=== PATIENT | male | born 1945 | race Caucasian/White ===

== ENCOUNTER → 2018-08-28 | Outpatient (CLI) | payer MEDICARE ==
--- NOTE | 2018-08-28 14:35 | Diagnostic Imaging Report ---
Exam: Bilateral knee series; 3 views each History: Pain Comparison: None available Findings: There is symmetric tricompartment degenerative disease which is severe on both the right and left side. There is a small left joint effusion. On the right side extensive vascular calcification is noted in the popliteal artery with several extra osseous calcific densities likely loose bodies that have calcified. 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 Signed by: Dr. Anand Kunz DO on 08/28/2018 2:31 PM
== END ==
LOC: RAD 12:24
DX: M17.0 Bilateral primary osteoarthritis of knee (principal)

== ENCOUNTER 2019-10-19 04:39 | Inpatient (IN) | payer MEDICARE, OTHER ==
[~2019-10-19] VITALS: Ht 170.2 cm; Wt 123.4 kg
[2019-10-19 04:54] LABS: BASOPHILS % 0.2 % (0.0-1.0); EOSINOPHILS % 0.2 % (0.0-6.0); HEMATOCRIT 49.2 % (38.2-49.6); HEMOGLOBIN 15.6 g/dL (14.0-18.0); LYMPHOCYTES # (AUTO) 0.6 (1.0-3.2); LYMPHOCYTES % 4.5 % (18.0-39.1); MEAN CORPUSCULAR HEMOGLOBIN 30.1 pg (28-32); MEAN CORPUSCULAR HGB CONC 31.7 g/dL (31-35); MEAN CORPUSCULAR VOLUME 94.8 fL (81-99); MONOCYTES # (AUTO) 0.5 (0.2-0.8); MONOCYTES % 4.3 % (4.4-11.3); NEUTROPHILS % 90.4 % (38.7-80.0); PLATELET COUNT 230 x10e3/uL (140-360); RED BLOOD COUNT 5.19 x10e6/uL (4.3-5.7); RED CELL DISTRIBUTION WIDTH 13.1 % (11.7-14.4)
--- NOTE | 2019-10-19 05:04 | Emergency Department Note ---
History of Present Illnes History of Present Illness Chief Complaint: Abdominal Complaints History of Present Illness This is a 74 year old male PRESENTS TO THE ER C/O EPIGASTRIC ABD PAIN RADIATING TO BILATERAL SHOULDERS ONSET LAST NIGHT AROUND 1999 AFTER EATING BUISCITS AND GRAVY; PT STATES HE DEVELOPED CP WHEN SYMPTOMS OCCURED THEN ROLLED OVER AND SYMPTOMS RESOLVED; DENIES FEVER/CHILLS, N/V/D; DENIES CP OR SOB; NAD NOTED AT THIS TIME. STATES HE HAS BEEN HAVING THIS PAIN OFF AN ON FOR PAST 3 WEEKS AND OCCURS AFTER HE EATS. PT IS ON COUMADIN SECONDARY TO H/O PE . 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 Any updates have been documented here. Past Medical History Recent Fever: No Clinical Suspicion of Infectio: No New/Unexplained Change in Ment: No Past Medical History: Hypertension, Diabetes, GERD, DVT/PE Other Medical History: RENAL FAILURE GAISBOK'S SYNDROME FACTOR V-THROMBOPHILIA Social History Smoking Cessation: Never Smoker Alcohol Use: None Any Illegal Drug Use: No Physically hurt or threatened: No Family History Family history of heart diseas: No Other family history HTN,DM Review of Systems Review of Systems Constitutional: Reports no symptoms EENTM: Reports no symptoms Cardiovascular: Reports no symptoms Respiratory: Reports no symptoms Gastrointestinal: Reports as per HPI Genitourinary: Reports no symptoms Musculoskeletal: Reports no symptoms Integumentary: Reports no symptoms Neurological: Reports no symptoms Psychological: Reports no symptoms Endocrine: Reports no symptoms Hematological/Lymphatic: Reports no symptoms Physical Exam Related Data Allergies: Coded Allergies: Iodine and Iodide Containing Produc (Verified Allergy, Intermediate, 10/19/19) Tetanus Vaccines and Toxoid (Verified Allergy, Unknown, 05/11/07) penicillin G (Verified Allergy, Unknown, 05/11/07) Triage Vital Signs Vital Signs Date Time Temp Pulse Resp B/P (MAP) Pulse Ox O2 Delivery O2 Flow Rate FiO2 10/19/19 04:39 99.6 115 20 134/73 99 Room Air Vital signs reviewed: Yes Physical Exam CONSTITUTIONAL Constitutional: Present well-developed, Present well-nourished HENT HENT: Present normocephalic, Present atraumatic, Present oropharynx clear/moist, Present nose normal HENT L/R: Present left ext ear normal, Present right ext ear normal EYES Eyes: Reports PERRL, Reports conjunctivae normal NECK Neck: Present ROM normal PULMONARY Pulmonary: Present effort normal, Present breath sounds normal CARDIOVASCULAR Cardiovascular: Present regular rhythm, Present heart sounds normal, Present capillary refill normal, Present tachycardia (110,PT STATES HIS HEART RATE IS ALWAYS AT LEAST 100) GASTROINTESTINAL Abdominal: Present soft, Present nontender, Present bowel sounds normal GENITOURINARY Genitourinary: Present exam deferred SKIN Skin: Present warm, Present dry MUSCULOSKELETAL Musculoskeletal: Present ROM normal NEUROLOGICAL Neurological: Present alert, Present oriented x 3, Present no gross motor or sensory deficits PSYCHOLOGICAL Psychological: Present mood/affect normal, Present judgement normal Results Laboratory Result Diagram: 10/19/19 0445 Laboratory Laboratory Tests Test 10/19/19 04:45 White Blood Count 12.14 x10e3/uL (4.8-10.8) Red Blood Count 5.19 x10e6/uL (4.3-5.7) Hemoglobin 15.6 g/dL (14.0-18.0) Hematocrit 49.2 % (38.2-49.6) Mean Corpuscular Volume 94.8 fL (81-99) Mean Corpuscular Hemoglobin 30.1 pg (28-32) Mean Corpuscular Hemoglobin Concent 31.7 g/dL (31-35) Red Cell Distribution Width 13.1 % (11.7-14.4) Platelet Count 230 x10e3/uL (140-360) Neutrophils (%) (Auto) 90.4 % (38.7-80.0) Lymphocytes (%) (Auto) 4.5 % (18.0-39.1) Monocytes (%) (Auto) 4.3 % (4.4-11.3) Eosinophils (%) (Auto) 0.2 % (0.0-6.0) Basophils (%) (Auto) 0.2 % (0.0-1.0) Neutrophils # (Auto) 11.0 (2.1-6.9) Lymphocytes # (Auto) 0.6 (1.0-3.2) Monocytes # (Auto) 0.5 (0.2-0.8) Eosinophils # (Auto) 0.0 (0.0-0.4) Basophils # (Auto) 0.0 (0.0-0.1) Absolute Immature Granulocyte (auto 0.05 x10e3/uL (0-0.1) Sodium Level 140 mmol/L (136-145) Potassium Level 4.7 mmol/L (3.5-5.1) Chloride Level 104 mmol/L (98-107) Carbon Dioxide Level 22 mmol/L (22-29) Anion Gap 18.7 mmol/L (8-16) Blood Urea Nitrogen 27 mg/dL (7-26) Creatinine 1.58 mg/dL (0.72-1.25) Estimat Glomerular Filtration Rate 43 ML/MIN (60-) BUN/Creatinine Ratio 17 (6-25) Glucose Level 138 mg/dL (74-118) Calcium Level 10.0 mg/dL (8.4-10.2) Total Bilirubin 3.1 mg/dL (0.2-1.2) Aspartate Amino Transf (AST/SGOT) 373 IU/L (5-34) Alanine Aminotransferase (ALT/SGPT) 342 IU/L (0-55) Alkaline Phosphatase 185 IU/L (40-150) Creatine Kinase 132 IU/L (30-200) Creatine Kinase MB 2.10 ng/mL (0-5.0) Troponin I 0.008 ng/mL (0-0.300) Total Protein 8.7 g/dL (6.5-8.1) Albumin 3.9 g/dL (3.5-5.0) Globulin 4.8 g/dL (2.3-3.5) Albumin/Globulin Ratio 0.8 (0.8-2.0) Amylase Level 194 U/L (25-125) Lipase 166 U/L (8-78) Laboratory Tests Test 10/19/19 04:45 White Blood Count 12.14 x10e3/uL (4.8-10.8) Red Blood Count 5.19 x10e6/uL (4.3-5.7) Hemoglobin 15.6 g/dL (14.0-18.0) Hematocrit 49.2 % (38.2-49.6) Mean Corpuscular Volume 94.8 fL (81-99) Mean Corpuscular Hemoglobin 30.1 pg (28-32) Mean Corpuscular Hemoglobin Concent 31.7 g/dL (31-35) Red Cell Distribution Width 13.1 % (11.7-14.4) Platelet Count 230 x10e3/uL (140-360) Neutrophils (%) (Auto) 90.4 % (38.7-80.0) Lymphocytes (%) (Auto) 4.5 % (18.0-39.1) Monocytes (%) (Auto) 4.3 % (4.4-11.3) Eosinophils (%) (Auto) 0.2 % (0.0-6.0) Basophils (%) (Auto) 0.2 % (0.0-1.0) Neutrophils # (Auto) 11.0 (2.1-6.9) Lymphocytes # (Auto) 0.6 (1.0-3.2) Monocytes # (Auto) 0.5 (0.2-0.8) Eosinophils # (Auto) 0.0 (0.0-0.4) Basophils # (Auto) 0.0 (0.0-0.1) Absolute Immature Granulocyte (auto 0.05 x10e3/uL (0-0.1) Lab results reviewed: Yes Imaging Imaging results reviewed: Yes Procedures 12 Lead ECG Interpretation ECG Interpretation : ECG: ECG 1 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: Interpreted by ED physician Date: Oct 19, 2019 Time: 04:42 Rhythm: sinus tachycardia Rate: tachycardia BPM: 112 QRS axis: normal Conduction: 1st degree ST segments normal: Yes T waves normal: Yes Other findings: no other findings Clinical Impression: non-specific ECG Assessment & Plan Medical Decision Making MDM PT WITH INTERMITTENT UPPER ABD PAIN RADIATING TO CHEST AND UPPER BACK FOR 3 WEEKS ASSOCIATED WITH EATING, PT IS PAIN FREE AT THIS TIME CBC, CMP, AMYLASE, LIPASE, EKG, CARDIAC ENZYMES, GALLBLADDER ULTRA SOUND ORDERED TO EVAL FOR MYOCARDIAL INFARCTION, ELEVATED LFT'S, PANCREATITIS, GALLSTONES PT WITH ELEVATED LFT'S AND WBC OF 12K LACTIC ACID ORDERED BLOOD CULTURES ORDERED ROCEPHIN 1 GRAM IV ORDERED FLAGYL 500 MG IV ORDERED. 1 LITER NS IV BOLUS ORDERED I SPOKE WITH DR Romana VICKERS, DR Giuliana VICKERS, AND DR Gary DUQUE, ADMIT IN PATIENT, ORD ER MRCP Assessment & Plan Final Impression: (1) Abdominal pain (2) Elevated LFTs (3) Pancreatitis (4) Cholecystitis Depart Disposition: ADMITTED Last Vital Signs Date Time Temp Pulse Resp B/P (MAP) Pulse Ox O2 Delivery O2 Flow Rate FiO2 10/19/19 04:39 99.6 115 20 134/73 99 Room Air ABHIJEET RUTH MD Oct 19, 2019 05:04
[2019-10-19 05:11] LABS: ALBUMIN 3.9 g/dL (3.5-5.0); ALBUMIN/GLOBULIN RATIO 0.8 (0.8-2.0); ANION GAP 18.7 mmol/L (8-16); CREATININE, SERUM 1.58 mg/dL (0.72-1.25); POTASSIUM 4.7 mmol/L (3.5-5.1)
[2019-10-19 05:12] LABS: AMYLASE 194 U/L (25-125); LIPASE 166 U/L (8-78)
[2019-10-19 05:18] LABS: CREATINE KINASE MB 2.1 ng/mL (0-5.0)
[2019-10-19] MEDS ORDERED: SODIUM CHLORIDE 0.9% 1000ML 1,000 ML ONE (05:27)
[2019-10-19 05:28] LABS: INR 1.77; PARTIAL THROMBOPLASTIN TIME 38.5 seconds (23.8-35.5); PROTHROMBIN TIME 21.7 seconds (11.9-14.5)
[2019-10-19] MEDS ORDERED: CEFTRIAXONE SOD 1 GM/NS 50 ML 50 ML IV ONE (05:30)
[2019-10-19] MEDS ORDERED: SODIUM CHLORIDE 0.9% 1000ML 1,000 ML IV ONE (05:30)
[2019-10-19] MEDS ORDERED: METRONIDAZOLE 500MG/NS 100ML 100 ML IV ONE (05:30)
--- OUTSIDE RECORDS SUMMARY | 2019-10-19 05:43 | XMS REPORT | Continuity of Care Document ---
Author Author [facility] Organization [facility] Address [address] [place] [id number] Phone Unavailable Care Team Providers Care Soil Analyst Name Role Phone JAYA VICKERS Attphys Unavailable Problems This patient has no known problems. Allergies, Adverse Reactions, Alerts This patient has no known allergies or adverse reactions. Medications This patient has no known medications. Procedures This patient has no known procedures. Results Test Description Test Time Test Comments Results Result Comments Source KNEE THREE VIEWS BILATERAL 2018-08-28 14:28:00 [facility] [address] [address] Patient Name: NASREEN HERNÁNDEZ MR #: [id number] : 1945 Age/Sex: 73/M Req #: [id number] Adm Physician: Ordered by: JAYA VICKERS MD Report #: [id number] Location: [facility] Room/Bed: Procedure: [id number] DX/KNEE THREE VIEWS BILATERAL Exam Date: 08/28/18 Exam Time: 1250 REPORT STATUS: Signed Exam: Bilateral knee series; 3 views each History: Pain Comparison: None available Findings: There is symmetric tricompartment degenerative disease which is severe on both the right and left side. There is a small left joint effusion. On the right side extensive vascular calcification is noted in the popliteal artery with several extra osseous calcific densities likely loose bodies that have calcified. 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 Signed by: Dr. Zaida Kunz DO on 08/28/2018 2:31 PM Dictated By: ZAIDA KUNZ DO 1431 Transcribed By: ZORAIDA on 08/28/18 1431 COPY TO: JAYA VICKERS MD
[2019-10-19] MEDS ORDERED: MORPHINE SULFATE 2 MG/ML SYR 1ML IV PRN (05:45)
[2019-10-19] MEDS ORDERED: ONDANSETRON HCL INJ 2MG/ML 2ML 2 MG/ML VIAL IV PRN (05:45)
[2019-10-19] MEDS ORDERED: DEXTROSE 50% SYRINGE 50 ML IV PRN (06:00)
--- OUTSIDE RECORDS SUMMARY | 2019-10-19 06:11 | XMS REPORT | Continuity of Care Document ---
Author Author [facility] Organization [facility] Address [address] [place] [id number] Phone Unavailable Care Team Providers Care Production Operator Name Role Phone JAYA VICKERS Attphys Unavailable Problems This patient has no known problems. Allergies, Adverse Reactions, Alerts This patient has no known allergies or adverse reactions. Medications This patient has no known medications. Procedures This patient has no known procedures. Results Test Description Test Time Test Comments Results Result Comments Source KNEE THREE VIEWS BILATERAL 2018-08-28 14:28:00 [facility] [address] [address] Patient Name: NASREEN HERNÁNDEZ MR #: [id number] : 1945 Age/Sex: 73/M Req #: [id number] Adm Physician: Ordered by: JAYA VICKERS MD Report #: [id number] Location: [facility] Room/Bed: Procedure: [id number] DX/KNEE THREE VIEWS BILATERAL Exam Date: 08/28/18 [...]
[2019-10-19] MEDS: METRONIDAZOLE 500MG/NS 100ML 100 ML IV SCH ×4 (06:46→23:52)
[2019-10-19] MEDS: CEFTRIAXONE SOD 1 GM/NS 50 ML 50 ML IV SCH (06:46)
[2019-10-19] MEDS: SODIUM CHLORIDE 0.9% 1000ML 1,000 ML IV SCH ×3 (06:52→20:50)
--- NOTE | 2019-10-19 06:56 | NUR ---
Report to KARY Alejo.
--- NOTE | 2019-10-19 06:57 | Diagnostic Imaging Report ---
EXAM: Right Upper Quadrant Ultrasound INDICATION: ^upper abd pain ^Y COMPARISON: None. TECHNIQUE: Transverse and longitudinal images of the right upper abdomen were obtained. FINDINGS: Liver: Size: 13 cm in the right midclavicular line, normal Appearance: Normal echogenicity, smooth contour Mass: No focal masses Gallbladder: Stones/Sludge: Unremarkable gallstones Wall: 2-3 millimeters Appearance: No pericholecystic fluid or hydrops. Sonographic Gleason's Sign: Negative Bile Ducts: Intrahepatic Ducts: No dilatation Extrahepatic Ducts: Common bile duct measures 0.7 cm, no dilatation Pancreas: Limited evaluation due to overlying bowel gas.. Right Kidney: Size: 11.4 cm Echogenicity: Normal Parenchymal thickness: Normal Collecting system: No hydronephrosis Stones: Hypoechoic foci measuring up to 5 mm may represent intrarenal calculi. Cyst/Mass: None Vessels: Main Portal Vein: Diameter: 0.8 cm, normal. Normal flow direction. Aorta: Visualized portions are normal Inferior Vena Cava: Visualized portions are normal Free Fluid: No ascites or pleural effusion IMPRESSION: 1. Cholelithiasis without evidence of acute cholecystitis. 2. Limited evaluation of pancreas due to overlying bowel gas. Signed by: Dannie Madison MD on 10/19/2019 6:54 AM
[2019-10-19] MEDS: INSULIN REGULAR, HUMAN 100 UNIT/1 ML 3ML VIAL SQ SCH ×4 (07:35→21:00)
--- NOTE | 2019-10-19 07:52 | NUR ---
Patient arrived from ER and report obtained from Anna Parsons LVN. The patient was in the bed and his IV was examined. 2 PIV's on the left arm, in the hand and the AC. IVF connected to a pump. The patient had just taken his BG in the ER where it was 116.
[2019-10-19 08:25] VITALS: BP 110/67
[2019-10-19 08:30] VITALS: BP 110/67
--- NOTE | 2019-10-19 10:00 | NUR ---
Patient is resting comfortably. He is ambulating to the BR with no problems.
--- NOTE | 2019-10-19 11:44 | Diagnostic Imaging Report ---
EXAM: MRI/MRCP of the abdomen without contrast INDICATION: Cholelithiasis. COMPARISON: Right upper quadrant ultrasound 10/19/2019. TECHNIQUE: Multiplanar and multisequence imaging was performed of the abdomen. Discussion: LOWER THORAX: Mild elevation of the right hemidiaphragm with associated basilar atelectasis. HEPATOBILIARY: There is focal fatty infiltration adjacent to the falciform ligament. No focal hepatic lesions. No biliary ductal dilation. No filling defect in the common bile duct to suggest choledocholithiasis. GALLBLADDER: Few T2 hypointense calculi within the gallbladder. The gallbladder is not dilated. No wall thickening. SPLEEN: No splenomegaly. PANCREAS: There is fatty infiltration of the pancreas. ADRENALS: No adrenal nodules KIDNEYS/URETERS: Kidneys enhance symmetrically. No hydronephrosis. 1.7 cm T2 hyperintense focus in the upper pole of the right kidney likely representing cyst. There are additional T2 hyperintense foci in the upper and lower poles of the left kidney also likely representing cysts.. No stones. GI TRACT: No abnormal distention, wall thickening, or evidence of bowel obstruction. LYMPH NODES: No lymphadenopathy. VESSELS: Unremarkable. PERITONEUM / RETROPERITONEUM: No free air or fluid. BONES: Degenerative changes of thoracolumbar spine. SOFT TISSUES: Unremarkable. IMPRESSION: Cholelithiasis. No evidence of acute cholecystitis or choledocholithiasis. Diffuse hepatic steatosis. Signed by: Luis Flores MD on 10/19/2019 11:41 AM
[2019-10-19 12:00] VITALS: BP 110/65
--- NOTE | 2019-10-19 12:30 | NUR ---
Patient resting well, compliant, and has no questions at this time.
--- NOTE | 2019-10-19 15:44 | NUR ---
Patient has been getting Flagyl IV and will continue with med.
[2019-10-19 16:10] VITALS: BP 119/69
--- NOTE | 2019-10-19 17:06 | NUR ---
The patient has a blood disorder that Dr. Bryant is seeing the patient for so Dr. Teddy Nash wants to have him treat the Thromblitic problem of his blood before the patient needs surgery sometime next week.
--- NOTE | 2019-10-19 19:30 | NUR ---
RECEIVED REPORT FROM PREVIOUS NURSE. CALL LIGHT WITHIN REACH. PATIENT IN BED.
[2019-10-19 20:00] VITALS: BP 142/92
[2019-10-20] VITALS (8 sets, daily range): BP systolic 134–153; BP diastolic 71–84
[2019-10-20 04:56] LABS: BASOPHILS % 0.5 % (0.0-1.0); EOSINOPHILS # (AUTO) 0.1 (0.0-0.4); EOSINOPHILS % 1.4 % (0.0-6.0); HEMATOCRIT 40.4 % (38.2-49.6); HEMOGLOBIN 12.9 g/dL (14.0-18.0); LYMPHOCYTES # (AUTO) 0.8 (1.0-3.2); LYMPHOCYTES % 9.3 % (18.0-39.1); MEAN CORPUSCULAR HEMOGLOBIN 30.9 pg (28-32); MEAN CORPUSCULAR HGB CONC 31.9 g/dL (31-35); MEAN CORPUSCULAR VOLUME 96.7 fL (81-99); MONOCYTES # (AUTO) 0.5 (0.2-0.8); MONOCYTES % 6.3 % (4.4-11.3); NEUTROPHILS # (AUTO) 7.1 (2.1-6.9); NEUTROPHILS % 82.2 % (38.7-80.0); PLATELET COUNT 189 x10e3/uL (140-360); RED BLOOD COUNT 4.18 x10e6/uL (4.3-5.7); RED CELL DISTRIBUTION WIDTH 13.4 % (11.7-14.4)
[2019-10-20] MEDS: CEFTRIAXONE SOD 1 GM/NS 50 ML 50 ML IV SCH (05:00)
[2019-10-20 05:09] LABS: INR 1.73; PROTHROMBIN TIME 21.3 seconds (11.9-14.5)
[2019-10-20 05:17] LABS: ALBUMIN 3.1 g/dL (3.5-5.0); ALBUMIN/GLOBULIN RATIO 0.8 (0.8-2.0); ANION GAP 14.1 mmol/L (8-16); CALCIUM 9.3 mg/dL (8.4-10.2); CREATININE, SERUM 1.35 mg/dL (0.72-1.25); POTASSIUM 4.1 mmol/L (3.5-5.1)
[2019-10-20] MEDS: METRONIDAZOLE 500MG/NS 100ML 100 ML IV SCH ×4 (05:45→23:44)
[2019-10-20] MEDS: SODIUM CHLORIDE 0.9% 1000ML 1,000 ML IV SCH ×3 (05:45→21:45)
--- NOTE | 2019-10-20 07:00 | NUR ---
Received bedside shift report from off going night nurse. Patient in stable condition, no s/s of distress noted. IV fluids infusing, site asymptomatic and patent, transparent dressing applied C/D/I. Bed in lowest position and locked. call light within reach.
--- NOTE | 2019-10-20 07:08 | NUR ---
GAVE BEDSIDE SHIFT REPORT TO ONCOMING NURSE. CALL LIGHT WITHIN REACH. PATIENT IN BED. HOURLY ROUNDING PERFORMED.
[2019-10-20] MEDS: INSULIN REGULAR, HUMAN 100 UNIT/1 ML 3ML VIAL SQ SCH ×4 (07:30→21:00)
--- NOTE | 2019-10-20 11:25 | NUR ---
NOTIFIED DR. RODRIGUEZ ABOUT THE PATIENT'S RESULTS OF THE GRAM STAIN BLOOD CULTURE THE RESULT WAS GRAM NEGATIVE RODS.
[2019-10-20] MEDS ORDERED: PHYTONADIONE 1 MG/0.5 ML AMP PO ONE (14:15)
[2019-10-20] MEDS ORDERED: PHYTONADIONE 10 MG/ML AMP PO ONE (14:15)
--- NOTE | 2019-10-20 14:29 | Progress Note ---
DATE: Internal Medicine Progress Note The patient is doing well. No significant complaint. PHYSICAL EXAMINATION: HEART: Showed regular rhythm. Normal S1, S2 sound. LUNGS: Clear bilaterally. ABDOMEN: Soft. EXTREMITIES: Show no edema except for brownish discoloration both lower extremities. VITAL SIGNS: Temperature 98.2, heart rate 90 per minute, respiratory rate is 20 per minute, blood pressure is 142/73, pulse oximetry 95%. LABORATORY DATA: On the CBC, white blood count 8.62, hemoglobin 12.9, hematocrit 40.4, platelet count 189,000. On the BMP; sodium 143, potassium 4.1, chloride 111, CO2 22, BUN 20, creatinine 1.35, glucose 86, calcium 9.3, total bilirubin 5.3, AST 171, ALT 244, alkaline phosphatase 145. Troponin is negative. Lipase 74, amylase 111. Blood culture showed no growth in one of the specimens, but the second one is showing some evidence of gram-negative bacteria. Final report is still pending. MRCP was negative for any choledocholithiasis or cholecystitis. He has cholelithiasis. Gallbladder ultrasound show gallstones without evidence of acute cholecystitis. FINAL IMPRESSION: 1. Symptomatic gallstone, elevated LFTs. 2. Acute anemia. 3. Uncontrolled hypertension. 4. Coagulopathy. 5. Hepatic steatosis. PLAN OF TREATMENT: We are going to continue monitoring liver function tests and PT and INR, possible ERCP. The liver function tests did not improve and as I said the coagulopathy has to be resolved before any type of surgical intervention. We are going to continue with ceftriaxone 1 g IV once a day, Flagyl 500 mg IV q.6, normal saline 125 mL an hour, morphine mg IV q.4 hours. Continue monitor blood sugar before meals and at bedtime. Continue Zofran 4 mg IV q.4 hours as needed for nausea. No surgery for now until Tuesday until liver function tests are much better. MD SUKHDEEP Gallego/АНДРЕЙ /[id number]
--- NOTE | 2019-10-20 16:39 | NUR ---
infectious disease consultation thank you first ilir patient patient seen and examined chart reviewed This very pleasant 74-year-old white male who was admitted with abdominal pain This is a 74 year old male PRESENTS TO THE ER C/O EPIGASTRIC ABD PAIN RADIATING TO BILATERAL SHOULDERS ONSET LAST NIGHT AROUND 1999 AFTER EATING BUISCITS AND GRAVY; PT STATES HE DEVELOPED CP WHEN SYMPTOMS OCCURED THEN ROLLED OVER AND SYMPTOMS RESOLVED; DENIES FEVER/CHILLS, N/V/D; DENIES CP OR SOB; NAD NOTED AT THIS TIME. STATES HE HAS BEEN HAVING THIS PAIN OFF AN ON FOR PAST 3 WEEKS AND OCCURS AFTER HE EATS. PT IS ON COUMADIN SECONDARY TO H/O PE . 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 Any updates have been documented here. Past Medical History Recent Fever: No Clinical Suspicion of Infectio: No New/Unexplained Change in Ment: No Past Medical History: Hypertension, Diabetes, GERD, DVT/PE Other Medical History: RENAL FAILURE GAISBOK'S SYNDROME FACTOR V-THROMBOPHILIA Social History Smoking Cessation: Never Smoker Alcohol Use: None Any Illegal Drug Use: No Physically hurt or threatened: No Family History Family history of heart diseas: No Other family history HTN,DM he patient is doing well. No significant complaint. PHYSICAL EXAMINATION: HEART: Showed regular rhythm. Normal S1, S2 sound. LUNGS: Clear bilaterally. ABDOMEN: Soft. EXTREMITIES: Show no edema except for brownish discoloration both lower extremities. VITAL SIGNS: Temperature 98.2, heart rate 90 per minute, respiratory rate is 20 per minute, blood pressure is 142/73, pulse oximetry 95%. LABORATORY DATA: On the CBC, white blood count 8.62, hemoglobin 12.9, hematocrit 40.4, platelet count 189,000. On the BMP; sodium 143, potassium 4.1, chloride 111, CO2 22, BUN 20, creatinine 1.35, glucose 86, calcium 9.3, total bilirubin 5.3, AST 171, ALT 244, alkaline phosphatase 145. Troponin is negative. Lipase 74, amylase 111. Blood culture showed no growth in one of the specimens, but the second one is showing some evidence of gram-negative bacteria. Final report is still pending. MRCP was negative for any choledocholithiasis or cholecystitis. He has cholelithiasis. Gallbladder ultrasound show gallstones without evidence of acute cholecystitis. FINAL IMPRESSION: 1. Symptomatic gallstone, elevated LFTs. 2. Acute anemia. 3. Uncontrolled hypertension. 4. Coagulopathy. 5. Hepatic steatosis. agree with the current choice of IV antibiotic We will discuss with surgery Recheck CBC restrictive panel We check liver enzyme He seems clinically to be stable at the present time
--- NOTE | 2019-10-20 19:04 | NUR ---
completed bedside shift report and rounding with oncoming night nurse. Patient in stable condition, no s/s of distress noted. IV fluids infusing, site asymptomatic and patent, transparent dressing applied C/D/I. Bed in lowest position and locked. call light within reach.
[2019-10-21] VITALS (8 sets, daily range): BP systolic 139–168; BP diastolic 75–93
[2019-10-21] MEDS: SODIUM CHLORIDE 0.9% 1000ML 1,000 ML IV SCH ×3 (01:13→21:07)
[2019-10-21] MEDS: CEFTRIAXONE SOD 1 GM/NS 50 ML 50 ML IV SCH (05:01)
[2019-10-21] MEDS: METRONIDAZOLE 500MG/NS 100ML 100 ML IV SCH ×4 (05:46→23:28)
[2019-10-21 06:25] LABS: INR 1.2; PROTHROMBIN TIME 15.9 seconds (11.9-14.5)
[2019-10-21 06:42] LABS: BASOPHILS % 0.4 % (0.0-1.0); EOSINOPHILS # (AUTO) 0.2 (0.0-0.4); EOSINOPHILS % 2.8 % (0.0-6.0); HEMATOCRIT 40.9 % (38.2-49.6); HEMOGLOBIN 12.6 g/dL (14.0-18.0); LYMPHOCYTES % 13.8 % (18.0-39.1); MEAN CORPUSCULAR HEMOGLOBIN 29.8 pg (28-32); MEAN CORPUSCULAR HGB CONC 30.8 g/dL (31-35); MEAN CORPUSCULAR VOLUME 96.7 fL (81-99); MONOCYTES # (AUTO) 0.6 (0.2-0.8); MONOCYTES % 8.5 % (4.4-11.3); NEUTROPHILS # (AUTO) 5.4 (2.1-6.9); NEUTROPHILS % 74.2 % (38.7-80.0); PLATELET COUNT 219 x10e3/uL (140-360); RED BLOOD COUNT 4.23 x10e6/uL (4.3-5.7); RED CELL DISTRIBUTION WIDTH 13.7 % (11.7-14.4)
[2019-10-21 07:08] LABS: ALBUMIN 2.9 g/dL (3.5-5.0); ALBUMIN/GLOBULIN RATIO 0.7 (0.8-2.0); ANION GAP 12.3 mmol/L (8-16); CALCIUM 9.1 mg/dL (8.4-10.2); CREATININE, SERUM 1.28 mg/dL (0.72-1.25); POTASSIUM 4.3 mmol/L (3.5-5.1)
[2019-10-21] MEDS: INSULIN REGULAR, HUMAN 100 UNIT/1 ML 3ML VIAL SQ SCH ×4 (07:30→21:00)
[2019-10-21] MEDS ORDERED: ENOXAPARIN SODIUM INJ 100 MG/ML SYR SC ONE ×2 (10:15→21:00)
--- NOTE | 2019-10-21 16:39 | Progress Note ---
DATE: Internal Medicine Progress Note SUBJECTIVE: The patient is doing well. No significant complaint. PHYSICAL EXAMINATION: HEART: Regular rhythm. Normal S1, S2 sound. LUNGS: Clear bilaterally. ABDOMEN: Soft, nontender. No distention. No visceromegaly. VITAL SIGNS: Blood pressure 156/79, temperature 37.9, heart rate 80 per minute, respiratory rate 20 per minute, and oxygen saturation 97%. LABORATORY DATA: On the blood work, CBC showed white blood count 7.27, hemoglobin 12.6, hematocrit 40.9, and platelet count 219,000. On the BMP; sodium 143, potassium 4.3, chloride 114, CO2 of 21, BUN 17, creatinine 1.28, GFR 55, glucose is 93, calcium 9.1, total bilirubin 2.8, AST 163, ALT 217, alkaline phosphatase 145, total protein 6.8, albumin 2.9, and globulin 3.9. Coronavirus test is negative. IMPRESSION: 1. Symptomatic gallstones. 2. Elevated liver function tests. 3. Acute anemia. 4. Uncontrolled hypertension. 5. Coagulopathy. 6. Hepatic steatosis. 7. Possible sepsis versus bacteremia. The patient is going to have a cholecystectomy tomorrow. The INR is finally 1.20. We are going to continue with monitoring the liver function test. Blood culture showed gram-negative rods in one, the other blood culture showed it was negative. PLAN OF TREATMENT: Continue ceftriaxone 1 g IV once a day, Flagyl 500 g IV q.6 hours, normal saline 125 mL an hour, morphine 4 mg IV q.4 hours as needed for severe pain, and vitamin K 2.5 mg p.o. one time. Monitor blood sugar before meals and at bedtime. Zofran 4 mg IV q.4 hours as needed for nausea. from the Cardiology point of view, Dr. Jean from Infectious Diseases, Dr. Bryant from Hematology, and Dr. Kaden Nash from Surgery as the patient is possible to have surgery tomorrow which is cholecystectomy. MD SUKHDEEP Gallego/MODL /[id number]
[2019-10-21] MEDS ORDERED: ENOXAPARIN SODIUM INJ 100 MG/ML SYR SC SCH (21:00)
--- NOTE | 2019-10-21 21:59 | NUR ---
infectious disease Progress note Patient seen and examined chart reviewed Events noted The patient is doing well. No significant complaint. PHYSICAL EXAMINATION: he is alert oriented does not seem to be acute distress but are stable afebrile HEART: Regular rhythm. Normal S1, S2 sound. LUNGS: Clear bilaterally. ABDOMEN: Soft, nontender. No distention. No visceromegaly. VITAL SIGNS: Blood pressure 156/79, temperature 37.9, heart rate 80 per minute, respiratory rate 20 per minute, and oxygen saturation 97%. LABORATORY DATA: On the blood work, CBC showed white blood count 7.27, hemoglobin 12.6, hematocrit 40.9, and platelet count 219,000. On the BMP; sodium 143, potassium 4.3, chloride 114, CO2 of 21, BUN 17, creatinine 1.28, GFR 55, glucose is 93, calcium 9.1, total bilirubin 2.8, AST 163, ALT 217, alkaline phosphatase 145, total protein 6.8, albumin 2.9, and globulin 3.9. Coronavirus test is negative. IMPRESSION: sepsis on admission Cholecystitis 1. Symptomatic gallstones. 2. Elevated liver function tests. 3. Acute anemia. 4. Uncontrolled hypertension. 5. Coagulopathy. 6. Hepatic steatosis. 7. Possible sepsis versus bacteremia. cholecystitis Continue antibiotic as ordered Await culture sensitivity The patient is going to have a cholecystectomy tomorrow. The INR is finally 1.20. We are going to continue with monitoring the liver function test. Blood culture showed gram-negative rods in one, the other blood culture showed it was negative.
[2019-10-22] VITALS (7 sets, daily range): BP systolic 135–173; BP diastolic 84–97
[2019-10-22] MEDS: CEFTRIAXONE SOD 1 GM/NS 50 ML 50 ML IV SCH ×2 (05:03→17:20)
[2019-10-22] MEDS: SODIUM CHLORIDE 0.9% 1000ML 1,000 ML IV SCH ×2 (05:03→11:45)
[2019-10-22] MEDS: METRONIDAZOLE 500MG/NS 100ML 100 ML IV SCH (05:38)
[2019-10-22 06:20] LABS: BASOPHILS % 0.3 % (0.0-1.0); EOSINOPHILS # (AUTO) 0.2 (0.0-0.4); EOSINOPHILS % 2.1 % (0.0-6.0); HEMOGLOBIN 12.9 g/dL (14.0-18.0); LYMPHOCYTES # (AUTO) 1.1 (1.0-3.2); LYMPHOCYTES % 15.5 % (18.0-39.1); MEAN CORPUSCULAR HEMOGLOBIN 30.1 pg (28-32); MEAN CORPUSCULAR HGB CONC 31.5 g/dL (31-35); MEAN CORPUSCULAR VOLUME 95.8 fL (81-99); MONOCYTES # (AUTO) 0.5 (0.2-0.8); MONOCYTES % 7.7 % (4.4-11.3); NEUTROPHILS # (AUTO) 5.2 (2.1-6.9); NEUTROPHILS % 74.1 % (38.7-80.0); PLATELET COUNT 211 x10e3/uL (140-360); RED BLOOD COUNT 4.28 x10e6/uL (4.3-5.7); RED CELL DISTRIBUTION WIDTH 13.7 % (11.7-14.4)
[2019-10-22 06:30] LABS: INR 1.09; PROTHROMBIN TIME 14.7 seconds (11.9-14.5)
[2019-10-22 06:31] LABS: PARTIAL THROMBOPLASTIN TIME 45.6 seconds (23.8-35.5)
[2019-10-22 06:49] LABS: ALANINE AMINOTRANSFERASE 206 IU/L (0-55); ALBUMIN 2.9 g/dL (3.5-5.0); ALBUMIN/GLOBULIN RATIO 0.8 (0.8-2.0); ALKALINE PHOSPHATASE 138 IU/L (40-150); ANION GAP 14.1 mmol/L (8-16); BLOOD UREA NITROGEN 14 mg/dL (7-26); BUN/CREATININE RATIO 13 (6-25); CALCIUM 9.1 mg/dL (8.4-10.2); CARBON DIOXIDE 20 mmol/L (22-29); CHLORIDE 113 mmol/L (98-107); CREATININE, SERUM 1.08 mg/dL (0.72-1.25); EST GLOMERULAR FILTRATION RATE > 60 ML/MIN (60-); GLUCOSE 88 mg/dL (74-118); POTASSIUM 4.1 mmol/L (3.5-5.1); SODIUM 143 mmol/L (136-145)
--- NOTE | 2019-10-22 07:28 | NUR ---
The patient is doing well. No significant complaint. Patient seen and examined chart reviewed Infectious disease progress note Case was discussed with the medical team Cultures noted PHYSICAL EXAMINATION: He is currently alert oriented does not seem to be in acute distress vital stable HEART: Regular rhythm. Normal S1, S2 sound. LUNGS: Clear bilaterally. ABDOMEN: Soft, nontender. No distention. No visceromegaly. VITAL SIGNS: Blood pressure 156/79, temperature 37.9, heart rate 80 per minute, respiratory rate 20 per minute, and oxygen saturation 97%. LABORATORY DATA: On the blood work, CBC showed white blood count 7.27, hemoglobin 12.6, hematocrit 40.9, and platelet count 219,000. On the BMP; sodium 143, potassium 4.3, chloride 114, CO2 of 21, BUN 17, creatinine 1.28, GFR 55, glucose is 93, calcium 9.1, total bilirubin 2.8, AST 163, ALT 217, alkaline phosphatase 145, total protein 6.8, albumin 2.9, and globulin 3.9. Coronavirus test is negative. Blood culture showing E. coli IMPRESSION: 1. Sepsis on admission E. coli bacteremia Cholecystitis Will increase the dose of Rocephin to 1 g every 12 hours Cholecystectomy today Can discontinue Flagyl tomorrow Continue with supportive care
[2019-10-22] MEDS: INSULIN REGULAR, HUMAN 100 UNIT/1 ML 3ML VIAL SQ SCH ×4 (07:30→20:44)
--- NOTE | 2019-10-22 08:02 | NUR ---
Pt received in bed with eyes open. Pt denies any pain at this time. Breaths are even and unlabored on room air. He continues to be NPO in preparation for procedure scheduled for today.
[2019-10-22] MEDS ORDERED: BUPIVACAINE 0.25%/EPI 30ML SDV INJ ONE (09:01)
--- NOTE | 2019-10-22 09:30 | NUR ---
Pt being taken to OR at this time for scheduled procedure. Pt is aox3 and able to verbalize needs. Denies any pain at this time. Breaths are even and unlabored.
[2019-10-22] MEDS ORDERED: IOPAMIDOL 300MG/ML 50ML INFUS..BTL IV ONE (09:55)
[2019-10-22] MEDS ORDERED: SUGAMMADEX SODIUM 200 MG/2 ML VIAL IV ONE (11:32)
[2019-10-22] MEDS ORDERED: HYDROMORPHONE 1MG/1ML INJ IV PRN (11:45)
[2019-10-22] MEDS ORDERED: HYDROCODONE/APAP 7.5MG-325MG 1 EA TAB PO PRN (11:45)
[2019-10-22] MEDS ORDERED: ONDANSETRON HCL INJ 2MG/ML 2ML 2 MG/ML VIAL IV PRN (11:45)
--- NOTE | 2019-10-22 12:44 | Operative Report ---
DATE OF PROCEDURE: 10/22/2019 SURGEON: Kaden Nash MD PREOPERATIVE DIAGNOSES: Cholecystitis and cholelithiasis. POSTOPERATIVE DIAGNOSES: Cholecystitis and cholelithiasis. OPERATION PERFORMED: Laparoscopic cholecystectomy. [employer] MECH[employer]IC: Nile Nash MD ANESTHESIA: General endotracheal. COMPLICATIONS: None. ESTIMATED BLOOD LOSS: Minimal. DESCRIPTION OF PROCEDURE: With the patient lying in bed in the supine position under good general endotracheal anesthesia, the abdomen was prepped with Betadine solution and draped in the usual manner. A Veress needle was introduced into the umbilicus and pneumoperitoneum was established without any difficulty. An 11 mm trocar was placed into the umbilicus and a 10 mm video laparoscope was placed into the intraabdominal cavity. Under direct vision, three 5 mm trocars were placed in the right subcostal region. An extra 5 mm trocar was needed in the left upper quadrant to retract and extremely redundant omentum and transverse colon. Video laparoscopy at this point, revealed some changes of fatty infiltration of the liver. The gallbladder was shrunken down, had multiple adhesions from obvious multiple attacks in the past. The rest of the abdominal exploration was otherwise within normal limits. All of the adhesions to the gallbladder were then slowly and carefully taken down. The peritoneum overlying the neck of the gallbladder was then opened and the cystic duct was identified. The cystic duct was followed to its junction with the common duct. The cystic duct was then circumferentially dissected. Due to the patient's size and angulation of the cystic duct, the cholangiogram could not be done for technical reasons and since the patient's liver function tests were all back to normal, we decided to go ahead and forego the cholangiogram. The cystic duct was then doubly clipped away from the common duct and divided. The cystic artery was similarly doubly clipped and divided. The gallbladder was then slowly and carefully taken off the liver bed using the cautery scissors and perfect hemostasis was ascertained. The gallbladder was placed in a pouch and removed through the umbilicus. Video laparoscopy was then again carried out, the liver bed was found to be perfectly dry, all of the excess fluid was aspirated. Because the patient has to be anticoagulated postoperatively, we went ahead and placed the SurgiSeal in the hepatic fossa. The pneumoperitoneum was then evacuated and all of the trocars were removed under direct vision. The midline fascia at the umbilicus was closed with a [id number] of 0 Vicryl. All layers were infiltrated with solution of 0.25% Marcaine. Subcutaneous tissue was approximated with 3-0 Vicryl and the skin was closed with subcuticular 5-0 Vicryl. Benzoin, Steri-Strips, and Band-Aids were applied. The sponge, lap, and needle counts were correct. The patient tolerated the procedure well and returned to the recovery room in stable condition. MD ZACHARY Morris/АНДРЕЙ /[id number]
[2019-10-22] MEDS ORDERED: DEXAMETHASONE SOD PHOS INJ 4 MG/ML VIAL ONE (13:29)
--- NOTE | 2019-10-22 13:45 | NUR ---
Received patient from PACU patient S/P Cholecystectomy, arrived in stretcher he awake alert and oriented x3, vernalizing needs, he is on venturi mask @10 liters, upon he transferred from stretcher to bed with 2 person assist, patient able to do transfer pivot, venturi mask increased to 15 liters patient tolerated well. Patient placed on bi-pap by respiratory therapist, per orders. Placed on telemetry he is SR, Patient incontinent of urine. Belongings brought in to room from previous room. patient has Laparoscopic sites to abdomen, covered with bandaid, scant dry bloody drainage. Belongings and call light within reach will continue to monitor.
--- NOTE | 2019-10-22 14:31 | NUR ---
infectious disease progress note Patient seen and examined Patient is currently alert oriented vitals stable afebrile HEENT intact. Check neck supple chest clear bilateral heart S1-S2 abdomen soft but are present extremities no edema E. coli sepsis present on admission Cholecystitis Continue with Rocephin Continue with local care status post surgery today Oral antibiotics:
[2019-10-22] MEDS: PANTOPRAZOLE 40 MG 10ML VIAL IV SCH (17:19)
--- NOTE | 2019-10-22 19:15 | Consultation ---
DATE OF CONSULTATION: Pulmonary Critical Care Consultation CHIEF COMPLAINT: Hemoptysis and difficulty breathing after anesthesia. HISTORY OF PRESENT ILLNESS: The patient is a 74-year-old man. He required hospitalization at [facility] 12 years ago with pulmonary emboli and respiratory failure. He was on a mechanical ventilator. He had a tracheostomy at that time. He was subsequently weaned from the vent and his trach was decannulated. The patient has since been following with Dr. Bryant of Hematology. He was found to have a Factor V Leiden deficiency. He has been on warfarin. He came to the hospital 4 days ago complaining of epigastric pain, that radiated to his shoulders. He also noted some difficulty swallowing. He was brought to the ER and found to have elevated liver tests. His ultrasound showed cholecystitis. Subsequent MRCP was negative. The patient went for a cholecystectomy today. Anesthesia noticed a narrow trachea on intubation. After the procedure, he was extubated the small amount of bleeding. He also has some difficulty breathing and required a BiPAP temporarily. He now feels better. He is not complaining of any wheezing or stridor. PAST SURGICAL HISTORY: 1. Status post tracheostomy as noted above. 2. Status post cholecystectomy as noted above. PAST MEDICAL HISTORY: 1. Factor V Leiden deficiency. 2. Chronic renal failure, stage 4. 3. Hypertension. 4. History of pulmonary embolism. 5. Diabetes. SOCIAL HISTORY: The patient never smoked. He is not a drinker. FAMILY HISTORY: Noncontributory. PHYSICAL EXAMINATION: VITAL SIGNS: The patient is afebrile. His blood pressure is 144/95, and the saturation is 100%. He is now on a nasal cannula. His respiratory rate is normal. HEENT: Shows no facial swelling or erythema. LYMPHATIC: Shows no submandibular, cervical, supraclavicular adenopathy. CARDIAC: Reveals regular rate and rhythm with normal S1, S2. LUNGS: Auscultation of lungs reveals clear breath sounds bilaterally. There is no wheezing. ABDOMEN: Soft, nontender. There is no rebound or guarding. EXTREMITIES: Shows no leg edema or calf tenderness. There is no cyanosis or clubbing. SKIN: Shows no rashes. LABORATORY DATA: BUN to creatinine ratio is 14 to 1.08. The carbon dioxide is 20 and the other electrolytes within normal limits. Albumin is 2.9. White blood cell count is 7, hemoglobin is 12.9, and platelet count is 211. IMPRESSION: 1. 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 2. History of factor V Leiden deficiency and prior pulmonary embolism. 3. Cholelithiasis, requiring cholecystectomy. 4. Chronic renal failure, stage 4. 5. Diabetes. 6. Hypertension. PLAN: 1. The patient will have a CT scan of the neck without contrast to evaluate for subglottic stenosis. 2. The patient has been restarted on warfarin by Dr. Bryant. We will follow the INRs. He is on Lovenox in the meantime. 3. The patient received dexamethasone. 4. Continue to monitor and control blood sugars. 5. Continue current antibiotics. Joe Gilmore MD [facility] /[id number]
[2019-10-22] MEDS ORDERED: WARFARIN SOD 5 MG TAB PO SCH (19:30)
--- NOTE | 2019-10-22 19:38 | NUR ---
Received change of shift report from AM nurse. Patient in bed with no c/o at this time. Patient sitting in chair denies pain at this time.
[2019-10-22] MEDS: WARFARIN SOD 5 MG TAB PO SCH (19:45)
--- NOTE | 2019-10-22 20:30 | NUR ---
Patient off the floor with resp. to CT of the neck.
--- NOTE | 2019-10-22 21:06 | NUR ---
Patient returned to the floor. Received 2 units of insulin to left arm. Patient requested to sit in chair and not bed. Patient in chair at the side of bed with no c/o at this time. S/W .
[2019-10-22] MEDS ORDERED: FENTANYL CITRATE/PF 100MCG/2 ML INJ ONE (21:39)
--- NOTE | 2019-10-22 21:53 | Diagnostic Imaging Report ---
Examination:CT SOFT TISSUE NECK WO CONTRAST History: Subglottic stenosis Comparison studies: None Technique: Axial images from the skull base to the thoracic inlet with coronal and sagittal reformats. Dose modulation, iterative reconstruction, and/or weight based adjustment of the mA/kV was utilized to reduce the radiation dose to as low as reasonably achievable. Findings: Evaluation of the neck is limited due to the absence of intravenous contrast. In spite of this limitation, Soft tissues: No abnormalities. Aerodigestive tract: No enhancing abnormality. There is subglottic stenosis with maximal width of 5.5 mm for a length of 2.4cm. Lymph nodes: No radiographically significant adenopathy. Thyroid gland: Normal in size and homogeneous. Submandibular glands: Normal in size and homogeneous. Parotid glands: Normal in size and homogeneous. Orbits: No abnormalities. Paranasal sinuses: Mild inflammatory mucosal thickening right maxillary sinus. Atherosclerotic calcification of the bilateral carotid bifurcations. Temporal bones: No abnormalities. Skull base and facial bones: Intact. Cervical spine: Disc osteophyte complexes at C5-C6 and C6-C7 with severe bilateral neural foraminal narrowing at C6-C7. Grade 1 anterolisthesis of C3 on C4. The remaining cervical levels demonstrate no disc bulge or herniation or foraminal or canal stenosis. Visualized lung apices: No abnormalities. 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 2. No enhancing abnormality within the pharynx or larynx. 3. Signed by: Dr. Tammy Heath M.D. on 10/22/2019 9:50 PM
--- NOTE | 2019-10-22 22:30 | Progress Note ---
DATE: 10/22/2019 Johnathan Briggs is a 74-year-old white male with syndrome, factor V Leiden deficiency, thrombophilia. The patient has undergone cholecystectomy. The patient was kept on Lovenox as he was taken off the Coumadin. My personal communication with Dr. Kaden Nash was that intubation was a problem as he has had a tracheostomy before. The patient had coughed up some blood. The patient also has shown blood cultures positive with Escherichia coli. The patient is on ceftriaxone, which should be continued. The patient will be restarted on Coumadin today as it will take another 5 days. Meanwhile, the patient will be kept on Lovenox. I will repeat the blood cultures today again to make sure that he does not need more antibiotics. I have been told that Dr. Cuba, the want ad supervisor, is on the case. MD LUZ Beck/АНДРЕЙ /[id number]
[2019-10-23] VITALS: BP 131/77
--- NOTE | 2019-10-23 02:47 | NUR ---
Patient resting quitly at this time. Continue monitor.
[2019-10-23] MEDS: CEFTRIAXONE SOD 1 GM/NS 50 ML 50 ML IV SCH ×2 (04:27→17:23)
[2019-10-23 04:36] LABS: BASOPHILS % 0.1 % (0.0-1.0); HEMATOCRIT 42.8 % (38.2-49.6); HEMOGLOBIN 13.1 g/dL (14.0-18.0); LYMPHOCYTES # (AUTO) 0.9 (1.0-3.2); MEAN CORPUSCULAR HEMOGLOBIN 29.9 pg (28-32); MEAN CORPUSCULAR HGB CONC 30.6 g/dL (31-35); MEAN CORPUSCULAR VOLUME 97.7 fL (81-99); MONOCYTES # (AUTO) 0.7 (0.2-0.8); MONOCYTES % 6.5 % (4.4-11.3); NEUTROPHILS # (AUTO) 9.6 (2.1-6.9); PLATELET COUNT 202 x10e3/uL (140-360); RED BLOOD COUNT 4.38 x10e6/uL (4.3-5.7); RED CELL DISTRIBUTION WIDTH 13.8 % (11.7-14.4)
[2019-10-23 04:56] LABS: ALANINE AMINOTRANSFERASE 213 IU/L (0-55); ALBUMIN 2.9 g/dL (3.5-5.0); ALBUMIN/GLOBULIN RATIO 0.7 (0.8-2.0); ALKALINE PHOSPHATASE 128 IU/L (40-150); ANION GAP 11.1 mmol/L (8-16); BLOOD UREA NITROGEN 15 mg/dL (7-26); BUN/CREATININE RATIO 13 (6-25); CALCIUM 8.8 mg/dL (8.4-10.2); CARBON DIOXIDE 21 mmol/L (22-29); CHLORIDE 114 mmol/L (98-107); CREATININE, SERUM 1.16 mg/dL (0.72-1.25); EST GLOMERULAR FILTRATION RATE > 60 ML/MIN (60-); GLUCOSE 102 mg/dL (74-118); POTASSIUM 4.1 mmol/L (3.5-5.1); SODIUM 142 mmol/L (136-145)
[2019-10-23] MEDS: SODIUM CHLORIDE 0.9% 1000ML 1,000 ML IV SCH ×3 (06:00→20:42)
[2019-10-23 06:29] VITALS: BP 148/81
[2019-10-23] MEDS: INSULIN REGULAR, HUMAN 100 UNIT/1 ML 3ML VIAL SQ SCH ×4 (07:30→20:35)
[2019-10-23 09:06] VITALS: BP 145/81
--- NOTE | 2019-10-23 09:18 | Progress Note ---
DATE: 10/23/2019 SUBJECTIVE: Johnathan Briggs is a 74-year-old male with [place] syndrome as well as thrombophilia with factor V Leiden deficiency. The patient's blood cultures are positive for Escherichia coli. The patient is on cefepime at this time. The patient had cholecystectomy, however, according to surgical notes the patient had difficulty intubation as he has had tracheostomy in the past. The patient did cough a blood after being extubated. The patient is being observed. I have restarted the patient on Coumadin as it will take more than 5 days for the INR to go up as he is at high risk for thromboembolic phenomenon; however, the priority at this time goes to the sepsis, for which he has continued the antibiotics. Consider Infectious Disease job service consultant. I will confine myself to Hematology only. MD LUZ Beck/АНДРЕЙ /[id number]
[2019-10-23 12:00] VITALS: BP 149/92
[2019-10-23] MEDS: MEROPENEM 1GM 100 ML IV SCH ×2 (12:40→20:49)
[2019-10-23] MEDS: PANTOPRAZOLE 40 MG 10ML VIAL IV SCH (14:20)
--- NOTE | 2019-10-23 14:20 | NUR ---
infectious disease progress note Patient's exam and chart reviewed Patient has post surgery The patient went for a cholecystectomy today. Anesthesia noticed a narrow trachea on intubation. After the procedure, he was extubated the small amount of bleeding. He also has some difficulty breathing and required a BiPAP temporarily. He now feels better. He is not complaining of any wheezing or stridor. PAST SURGICAL HISTORY: 1. Status post tracheostomy as noted above. 2. Status post cholecystectomy as noted above. Review of system is negative Vitals stable afebrile Physical examination currently alert oriented vitals stable HEENT not pale thick neck supple chest few crackles bilateral heart S1-S2 abdomen soft muscle present extremities no edema skin no rash sepsis in remission resolved Bacteremia Status post cholecystectomy cont same
[2019-10-23 16:23] VITALS: BP 149/96
--- NOTE | 2019-10-23 17:10 | Progress Note ---
DATE: SUBJECTIVE: The patient is afebrile. The CT scan of the neck showed some tracheal stenosis. He denies dyspnea. He did have a small amount of hemoptysis. PHYSICAL EXAMINATION: VITAL SIGNS: Blood pressure is 149/90, saturation is 100% on 8 L. HEENT: Shows no facial swelling or erythema. LYMPHATIC: Shows no submandibular, cervical, or supraclavicular adenopathy. CARDIAC: Reveals a regular rate and rhythm with normal S1, S2. LUNGS: Auscultation of lungs is rhonchorous breath sounds bilaterally. There is no wheezing. ABDOMEN: Soft, nontender. There is no rebound or guarding. EXTREMITIES: Shows no leg edema or calf tenderness. There is no cyanosis or clubbing. LABORATORY DATA: BUN to creatinine ratio is 15 to 1.16. Other electrolytes within normal limits. BUN to creatinine ratio is normal. IMPRESSION: 1. Subglottic stenosis. 2. Pulmonary emboli with Factor V Leiden deficiency. 3. Cholelithiasis, requiring cholecystectomy. 4. Diabetes. 5. Chronic renal failure, stage 4. PLAN: 1. Continue to adjust anticoagulation. 2. The patient should have PFTs as an outpatient to evaluate the degree of obstruction from the subglottic stenosis. 3. Consider sleep study as an outpatient. Joe Gilmore MD [facility] /[id number]
[2019-10-23] MEDS: WARFARIN SOD 5 MG TAB PO SCH (17:24)
[2019-10-23 17:44] LABS: INR 1.04; PROTHROMBIN TIME 14.1 seconds (11.9-14.5)
--- NOTE | 2019-10-23 19:20 | NUR ---
Received change of shift report from AM nurse. Patient up sitting in chair with no c/o at this time. Patient voided in BSc 400cc. Patient states he had alarge Bm today.
--- NOTE | 2019-10-23 20:07 | NUR ---
Received change of shift report from AM nurse. Patient in room sitting in chair with no c/o pain or discomfort at this time. Patient report having a large BM. Voided 400cc of yellow urine with no odor noted.
[2019-10-23 20:50] VITALS: BP 149/96
[2019-10-24] VITALS: BP 135/90
[2019-10-24 03:42] VITALS: BP 145/97
--- NOTE | 2019-10-24 03:50 | NUR ---
Patient up to bathroom with asst. Large BM brown formed. Patient resting quitly.
[2019-10-24] MEDS: CEFTRIAXONE SOD 1 GM/NS 50 ML 50 ML IV SCH (04:04)
[2019-10-24] MEDS: INSULIN REGULAR, HUMAN 100 UNIT/1 ML 3ML VIAL SQ SCH ×4 (07:29→21:00)
[2019-10-24] MEDS: MEROPENEM 1GM 100 ML IV SCH (08:46)
[2019-10-24 09:02] VITALS: BP 142/97
[2019-10-24] MEDS: SODIUM CHLORIDE 0.9% 1000ML 1,000 ML IV SCH ×3 (11:55→23:45)
[2019-10-24] MEDS: PANTOPRAZOLE 40 MG 10ML VIAL IV SCH (11:58)
--- NOTE | 2019-10-24 12:29 | Progress Note ---
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 The patient is being followed by both Dr. Chris Denton as well as surgeon. I am confining myself to Hematology only. The patient's COVID-19 is negative. The patient at the present time is on Coumadin. The patient's sepsis with Escherichia coli is being treated aggressively at the present time with ceftriaxone and meropenem. I will keep a close eye on the patient's INR since this will take a good five days. I am afraid of giving him Lovenox to bridge over since he did bleed from the trachea after intubation. MD LUZ Beck/АНДРЕЙ /[id number]
--- NOTE | 2019-10-24 16:48 | NUR ---
Nutrition Screen Note RD Recommendation for Physician: -Recommend advancing to low sodium/ADA diet when medically appropriate Plan of Care: RD following, monitoring for tolerance and adequacy Nutrition reason for involvement: length of stay Primary Diagnose(s): abdominal pain, cholecystitis, elevated LFTs, and pancreatitis PMH: Factor V Leiden deficiency, Chronic renal failure, stage 4, Hypertension, History of pulmonary embolism, Diabetes Ht: 67 in Wt:272 lb BMI: 42.6 kg/m2 IBW:[address] Assessment: (10/24/19) Chart reviewed. Labs and meds reviewed. Pt is a 74 year old male admitted with abdominal pain, cholecystitis, elevated LFTs, and pancreatitis. Pt had a cholecystectomy on 10/21. No reports of recent unintentional weight loss or decreased appetite prior to admission per chart Pt is currently on a liquid diet with 100% meal intake recorded. Recommend advancing diet when medically appropriate. Will continue to monitor. Current Diet: full liquid Malnutrition Evaluation (10/24/19) The patient does not meet criteria for a specified degree of malnutrition at this time. Will re-evaluate at follow-up as appropriate. Energy intake: <50% of estimated energy requirements for 5 days (pt has been NPO/liquid diet for 5 days) Weight loss: No weight loss reported Fat loss: unable to evaluate Muscle loss: unable to evaluate Supporting Evidence: Fluid accumulation: unable to evaluate Functional Status: unable to evaluate Diet Education Needs Assessment: Diet education not indicated. Pt is on a temporary/transition diet Nutrition Care Level: moderate Signed: Mary Peacock, RD, LD
[2019-10-24] MEDS: WARFARIN SOD 5 MG TAB PO SCH (16:51)
[2019-10-24 16:54] VITALS: BP 161/100
[2019-10-24 17:22] LABS: INR 1.16; PROTHROMBIN TIME 15.4 seconds (11.9-14.5)
--- NOTE | 2019-10-24 17:40 | Progress Note ---
DATE: SUBJECTIVE: Mr. Briggs is doing well. There is no new complaint. PHYSICAL EXAMINATION: GENERAL: He is currently alert and oriented. VITAL SIGNS: Stable, currently afebrile. HEENT: He is not icteric. NECK: Supple. CHEST: Clear. HEART: S1 and S2. ABDOMEN: Soft. Bowel sounds present. EXTREMITIES: No edema. SKIN: No rash. IMPRESSION: Sepsis, improving. He had Escherichia coli on admission . We will discontinue meropenem and change to oral Keflex. He is currently on Rocephin. We will change him to 1 g daily. Continue supportive care. MD LUZ Mcmahon/АНДРЕЙ /[id number]
--- NOTE | 2019-10-24 17:41 | NUR ---
pt have very frequent loose stool, bottom irritation and excoriation. barrier cream applied
[2019-10-24 20:00] VITALS: BP 156/92
[2019-10-24 21:23] VITALS: BP 156/92
[2019-10-25] VITALS (7 sets, daily range): BP systolic 131–165; BP diastolic 77–120
[2019-10-25 04:35] LABS: BASOPHILS % 0.3 % (0.0-1.0); EOSINOPHILS # (AUTO) 0.2 (0.0-0.4); EOSINOPHILS % 2.2 % (0.0-6.0); HEMATOCRIT 42.8 % (38.2-49.6); HEMOGLOBIN 13.5 g/dL (14.0-18.0); LYMPHOCYTES # (AUTO) 1.7 (1.0-3.2); LYMPHOCYTES % 17.5 % (18.0-39.1); MEAN CORPUSCULAR HGB CONC 31.5 g/dL (31-35); MEAN CORPUSCULAR VOLUME 95.1 fL (81-99); MONOCYTES # (AUTO) 0.7 (0.2-0.8); MONOCYTES % 7.3 % (4.4-11.3); NEUTROPHILS # (AUTO) 6.9 (2.1-6.9); NEUTROPHILS % 72.2 % (38.7-80.0); PLATELET COUNT 216 x10e3/uL (140-360); RED CELL DISTRIBUTION WIDTH 13.6 % (11.7-14.4)
[2019-10-25 04:55] LABS: ALANINE AMINOTRANSFERASE 160 IU/L (0-55); ALBUMIN 2.9 g/dL (3.5-5.0); ALBUMIN/GLOBULIN RATIO 0.8 (0.8-2.0); ALKALINE PHOSPHATASE 113 IU/L (40-150); ANION GAP 12.8 mmol/L (8-16); BLOOD UREA NITROGEN 11 mg/dL (7-26); BUN/CREATININE RATIO 12 (6-25); CALCIUM 8.9 mg/dL (8.4-10.2); CARBON DIOXIDE 22 mmol/L (22-29); CHLORIDE 111 mmol/L (98-107); CREATININE, SERUM 0.93 mg/dL (0.72-1.25); EST GLOMERULAR FILTRATION RATE > 60 ML/MIN (60-); GLUCOSE 113 mg/dL (74-118); POTASSIUM 3.8 mmol/L (3.5-5.1); SODIUM 142 mmol/L (136-145)
[2019-10-25] MEDS: CEFTRIAXONE SOD 1 GM/NS 50 ML 50 ML IV SCH (05:15)
[2019-10-25] MEDS: INSULIN REGULAR, HUMAN 100 UNIT/1 ML 3ML VIAL SQ SCH ×4 (07:30→20:48)
[2019-10-25] MEDS ORDERED: METOPROLOL SUCC25 MG (08:36)
[2019-10-25] MEDS ORDERED: OMEPRAZOLE40 MG (08:36)
[2019-10-25] MEDS ORDERED: SIMVASTATIN40 MG PO (08:36)
[2019-10-25] MEDS ORDERED: LASIX40 MG PO (08:36)
[2019-10-25] MEDS ORDERED: GLIMEPIRIDE2 MG PO (08:36)
[2019-10-25] MEDS ORDERED: WARFARIN SODIUM3 MG PO (08:36)
[2019-10-25] MEDS ORDERED: LISINOPRIL2.5 MG PO (08:36)
[2019-10-25] MEDS ORDERED: POTASSIUM CHLO20 ME1 (08:36)
[2019-10-25] MEDS ORDERED: ASPIRIN81 MG (08:36)
[2019-10-25] MEDS ORDERED: MULTI-VITAMIN1 EACH (08:36)
[2019-10-25] MEDS: SODIUM CHLORIDE 0.9% 1000ML 1,000 ML IV SCH (09:45)
[2019-10-25] MEDS: PANTOPRAZOLE 40 MG 10ML VIAL IV SCH (11:38)
--- NOTE | 2019-10-25 13:16 | NUR ---
this is infectious disease progress note Jonh per patient seen and examined chart reviewed. Palpation of both feeling well and review of system at present time all negative. His physical examination currently alert oriented vitals stable afebrile HEENT normocephalic not. Icteric neck supple no JVD no any thyromegaly chest clear bilateral heart S1-S2 with no stressful murmur abdomen soft positive present extremities no edema skin no rash. Patient sepsis admission her resolved on Rocephin can change or Keflex 5 mg by mouth 3 times a day to finish a total of 14 days stable from infectious disease point of view PHYSICAL EXAMINATION: GENERAL: He is currently alert and oriented. VITAL SIGNS: Stable, currently afebrile. HEENT: He is not icteric. NECK: Supple. CHEST: Clear. HEART: S1 and S2. ABDOMEN: Soft. Bowel sounds present. EXTREMITIES: No edema. SKIN: No rash.
[2019-10-25] MEDS ORDERED: SEVOFLURANE INHAL SOLN 250 ML PEN BTL INH ONE (14:34)
[2019-10-25] MEDS ORDERED: NEOSTIGMINE 1 MG/ML 10ML VIAL IV ONE (14:34)
[2019-10-25] MEDS ORDERED: ATROPINE SULFATE 1 MG/ML VIAL IV ONE (14:34)
[2019-10-25] MEDS ORDERED: PROPOFOL IV EMULSION 10 MG/ML 20 ML VIAL IV ONE (14:34)
[2019-10-25] MEDS ORDERED: ROCURONIUM BROMIDE 10 MG/ML 5ML VIAL IV ONE ×2 (14:34)
[2019-10-25] MEDS ORDERED: LIDOCAINE HCL 2% LOCAL INJ 5 ML SDV VIAL INJ ONE (14:34)
[2019-10-25] MEDS ORDERED: DEXAMETHASONE SOD PHOS INJ 4 MG/ML VIAL IV ONE (14:34)
[2019-10-25] MEDS ORDERED: ONDANSETRON HCL INJ 2MG/ML 2ML 2 MG/ML VIAL IV ONE (14:34)
--- NOTE | 2019-10-25 15:50 | Progress Note ---
DATE: Internal Medicine Progress Note SUBJECTIVE: The patient is doing well. PHYSICAL EXAMINATION: HEART: Showed regular rhythm. Normal S1, S2 sound. LUNGS: Clear bilaterally. ABDOMEN: Soft. VITAL SIGNS: Blood pressure is 162/106, temperature 98.7, heart rate 91 per minute, respiratory rate 27 per minute, pulse oximetry 95%. LABORATORY DATA: On CBC; white blood count 9.56, hemoglobin 13.5, hematocrit 42.8, platelet count of 215,000. On the BMP; sodium 142, potassium 3.8, chloride 111, CO2 22, BUN 11, creatinine 0.93, glucose 113, calcium 9.9, total bilirubin 0.8, AST 78, ALT 160, alkaline phosphatase 113, total protein 6.7, albumin 2.9, globulin 3.8, lipase is 74. FINAL IMPRESSION: 1. Elevated liver function test. 2. Status post gallstone pancreatitis. 3. Gallstone, status post cholecystectomy. 4. Acute anemia. 5. Uncontrolled hypertension. 6. Coagulopathy. 7. Hepatic steatosis. 8. Sepsis. PLAN OF TREATMENT: We are going to continue current medication regimen, which includes ceftriaxone 1 g IV once a day. We are going to discontinue the fluids. Continue monitoring blood sugar before meals and at bedtime, Protonix 40 mg once a day, Zofran 4 mg q.4 hours as needed, Dilaudid 0.5 mg q.3 hours as needed, Corona 1 tablet q.4 hours as needed, Coumadin 5 mg daily. Complete metabolic panel tomorrow. MD SUKHDEEP Gallego/АНДРЕЙ /[id number]
--- NOTE | 2019-10-25 16:07 | NUR ---
WOUND CARE SCREENING CONSULT FOR 74 YO MALE ADMITTED TO [facility] WITH HX OF ABD PAIN, CHOLECYSTITIS, ELEVATED LFTS AND PANCREATITIS. DELLA 19 ON CONSERVATIVE PUP STATUS AND INTERVENTIONS SURFACE: REGULAR VISCO MATTRESS. NURSING REQUESTED WOUND CARE SCREENING CONSULT SKIN ASSESSMENT COMPLETE PATIENT PRESENTS NO OPEN WOUNDS PRESENT AT THIS TIME. RECOMMENDATIONS NURSING TO CONTINUE TO MONITOR PATIENT AND KEEP SKIN CLEAN AND FREE FROM STOOL OR IRRITATING MOISTURE, TO CONTINUE FOLLOWING CONSERVATIVE PUP INTERVENTIONS DAILY AND TO APPLY REMEDY SKIN BARRIER NEEDED. NURSING TO ENCOURAGE PT TO SELF REPOSITION IN BED NEEDED. NURSING TO CONTINUE VISCO MATTRESS. NURSING TO CONTINUE TO OFFLOAD FEET AND HEELS AT ALL TIMES WITH PILLOW SUSPENSION WHEN IN BED. NURSING TO ASSIST PT OUT OF BED FOR MEALS AND NEEDED. NURSING TO CONTINUE TO ASSIST WITH PT NUTRITIONAL SUPPLEMENTS TO ENSURE PROPER REQUIREMENTS FOR HEALING. NURSING TO RE- CONSULT WOUND CARE NEEDED. Addendum: 10/25/19 at 1609 by Mari Moore RN Amended: Links added.
[2019-10-25] MEDS: METOPROLOL SUCCINATE 25 MG TAB XL PO SCH (17:09)
[2019-10-25] MEDS: FUROSEMIDE 40 MG TAB PO SCH (17:10)
[2019-10-25] MEDS: WARFARIN SOD 5 MG TAB PO SCH (17:10)
[2019-10-25 17:59] LABS: INR 1.29; PROTHROMBIN TIME 16.8 seconds (11.9-14.5)
--- NOTE | 2019-10-25 18:21 | Progress Note ---
DATE: 10/25/2019 SUBJECTIVE: Mr. 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 The patient had cholecystectomy. The patient's blood cultures on 10/18 were reported positive. However, the cultures have redone again on 10/21 reported negative. The patient had the E coli. The patient at the present time on Coumadin. I have withheld the transfusion to Lovenox and Coumadin because of blood he coughed after he had been intubated possibly due to trauma at the level of the trachea. 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 The patient's hemoglobin remains normal at 13.5, white count of 9560, and platelets are 216,000. The white count has come down from 11,340. At the present time, the patient is on fairly aggressive antibiotic therapy consisting of ceftriaxone. The patient was on meropenem before, which was taken off. I have kept him on Coumadin and keeping a close eye on the patient's INR. His INR today is 1.16. The COVID-19 serologies reported negative. I will confine myself to Hematology only. Jessica Bryant MD MAQ/MODL /[id number] cc: MD Kaden Ramirez MD
[2019-10-25] MEDS ORDERED: SIMVASTATIN 40 MG TAB PO SCH (21:00)
[2019-10-26] VITALS: BP 157/92
[2019-10-26 04:00] VITALS: BP 157/107
[2019-10-26 05:11] LABS: ALBUMIN 3.1 g/dL (3.5-5.0); ALBUMIN/GLOBULIN RATIO 0.7 (0.8-2.0); ANION GAP 15.5 mmol/L (8-16); CALCIUM 9.6 mg/dL (8.4-10.2); CREATININE, SERUM 1.23 mg/dL (0.72-1.25); POTASSIUM 4.5 mmol/L (3.5-5.1)
[2019-10-26] MEDS: CEFTRIAXONE SOD 1 GM/NS 50 ML 50 ML IV SCH (06:00)
[2019-10-26] MEDS: INSULIN REGULAR, HUMAN 100 UNIT/1 ML 3ML VIAL SQ SCH ×3 (07:30→16:30)
[2019-10-26] MEDS ORDERED: ASPIRIN 81 MG CHEW TAB PEG SCH (09:00)
[2019-10-26] MEDS ORDERED: POTASSIUM CHLORIDE 20 MEQ TAB CR PO SCH (09:00)
[2019-10-26] MEDS ORDERED: MULTIVITAMINS/MINERALS TAB PO SCH (09:00)
[2019-10-26] MEDS ORDERED: LISINOPRIL 2.5 MG TAB PO SCH (09:00)
[2019-10-26] MEDS ORDERED: PANTOPRAZOLE SOD 40 MG TABEC PO SCH (09:00)
[2019-10-26] MEDS: FUROSEMIDE 40 MG TAB PO SCH ×2 (09:03→17:34)
[2019-10-26 09:15] VITALS: BP 102/98
[2019-10-26] MEDS: METOPROLOL SUCCINATE 25 MG TAB XL PO SCH ×2 (09:27→17:45)
[2019-10-26 09:29] VITALS: BP 155/91
[2019-10-26 10:50] LABS: INR 1.5
--- NOTE | 2019-10-26 14:56 | Progress Note ---
DATE: SUBJECTIVE: [place] Mann is doing much better. REVIEW OF SYSTEMS: Negative. PHYSICAL EXAMINATION: GENERAL: He is currently alert and oriented. VITALS: Stable, currently afebrile. HEENT: He is not icteric. NECK: Supple. CHEST: Clear. HEART: S1 and S2. ABODMEN: Soft, bowel sounds present. EXTREMITIES: No edema. SKIN: No rash. IMPRESSION: 1. Sepsis on admission, improving. Can go home with oral Keflex from Infectious Disease point of view. 2. G[place] syndrome. 3. Factor V Leiden deficiency. 4. Status post cholecystectomy, stable from Infectious Disease point of view. Discharge planning for today. Again, he can finish 14 days of Keflex 500 mg p.o. t.i.d. . MD LUZ Mcmahon/АНДРЕЙ /[id number]
[2019-10-26 17:11] LABS: INR 1.48; PROTHROMBIN TIME 18.8 seconds (11.9-14.5)
[2019-10-26] MEDS: WARFARIN SOD 5 MG TAB PO SCH (17:45)
--- NOTE | 2019-10-26 18:00 | NUR ---
Patient discharged home, verbalized understanding of discharge instructions. Escorted patient in wheel chair to meet family in front of hospital.
== END 2019-10-26 18:00 | disposition home or self-care (01) | DRG 853 ==
LOC: ER 05:40 → ERHOLD 05:45 → MED/SURG 07:52 → IMCU 10-22 14:56
PROC: 0FT44ZZ Resection of Gallbladder, Percutaneous Endoscopic Approach (ICD-10-PCS; principal; 2019-10-22 10:19)
DX: A41.51 Sepsis due to Escherichia coli [E. coli] (principal); K85.10 Biliary acute pancreatitis without necrosis or infection; K80.10 Calculus of gallbladder with chronic cholecystitis without obstruction; D68.9 Coagulation defect, unspecified; D68.51 Activated protein C resistance; N18.4 Chronic kidney disease, stage 4 (severe); Z68.41 Body mass index [BMI] 40.0-44.9, adult; N17.9 Acute kidney failure, unspecified; K76.0 Fatty (change of) liver, not elsewhere classified; D64.9 Anemia, unspecified; J38.6 Stenosis of larynx; I12.9 Hypertensive chronic kidney disease with stage 1 through stage 4 chronic kidney disease, or unspecified chronic kidney disease; Z79.01 Long term (current) use of anticoagulants; Z86.711 Personal history of pulmonary embolism; E11.22 Type 2 diabetes mellitus with diabetic chronic kidney disease; D75.1 Secondary polycythemia; Z83.3 Family history of diabetes mellitus; Z82.49 Family history of ischemic heart disease and other diseases of the circulatory system; Z88.0 Allergy status to penicillin; Z88.7 Allergy status to serum and vaccine; Z91.041 Radiographic dye allergy status; E66.01 Morbid (severe) obesity due to excess calories; K82.8 Other specified diseases of gallbladder; Z79.84 Long term (current) use of oral hypoglycemic drugs
CPT/HCPCS: 36415; 70490; 74181; 76705; 80053; 82150; 82550; 82553; 82948; 83605; 83690; 84484; 85025; 85610; 85730; 87040; 87071; 87186; 87205; 88304; 93005; 94660; 99284; C1766; J0461; J0696; J1100; J1650; J1817; J2001; J2405; J2710; J3010; J3430; J7030; U0002

== ENCOUNTER 2020-04-23 18:08 | Emergency (ER) | payer MEDICARE ==
[~2020-04-23] VITALS: Ht 170.2 cm; Wt 120.7 kg
[~2020-04-23 18:08] MED LIST: ASPIRIN81 MG; GLIMEPIRIDE2 MG PO; LASIX40 MG PO; LISINOPRIL2.5 MG PO; METOPROLOL SUCC25 MG; MULTI-VITAMIN1 EACH; OMEPRAZOLE40 MG; POTASSIUM CHLO20 ME1; SIMVASTATIN40 MG PO; WARFARIN SODIUM3 MG PO
[2020-04-23 18:56] LABS: BASOPHILS % 0.5 % (0.0-1.0); EOSINOPHILS # (AUTO) 0.2 (0.0-0.4); HEMATOCRIT 47.4 % (38.2-49.6); HEMOGLOBIN 15.4 g/dL (14.0-18.0); LYMPHOCYTES # (AUTO) 2.8 (1.0-3.2); LYMPHOCYTES % 32.5 % (18.0-39.1); MEAN CORPUSCULAR HEMOGLOBIN 30.7 pg (28-32); MEAN CORPUSCULAR HGB CONC 32.5 g/dL (31-35); MEAN CORPUSCULAR VOLUME 94.6 fL (81-99); MONOCYTES # (AUTO) 0.7 (0.2-0.8); MONOCYTES % 8.6 % (4.4-11.3); NEUTROPHILS # (AUTO) 4.8 (2.1-6.9); NEUTROPHILS % 56.2 % (38.7-80.0); PLATELET COUNT 269 x10e3/uL (140-360); RED BLOOD COUNT 5.01 x10e6/uL (4.3-5.7); RED CELL DISTRIBUTION WIDTH 13.3 % (11.7-14.4)
[2020-04-23 18:59] LABS: CLARITY,URINE CLEAR (CLEAR); COLOR,URINE YELLOW (YELLOW); KETONES,URINE NEGATIVE (NEGATIVE); LEUKOCYTE ESTERASE ,URINE NEGATIVE (NEGATIVE); NITRITE,URINE NEGATIVE (NEGATIVE); PROTEIN,URINE DIPSTICK NEGATIVE (NEGATIVE); URINE UROBILINOGEN 0.2 mg/dL (0.2 - 1)
[2020-04-23 19:10] LABS: WBC,URINE (MAN) 0-5 /HPF (0-5)
[2020-04-23 19:16] LABS: ALBUMIN 4.1 g/dL (3.5-5.0); ALBUMIN/GLOBULIN RATIO 0.9 (0.8-2.0); ANION GAP 17.7 mmol/L (8-16); CALCIUM 9.5 mg/dL (8.4-10.2); CREATININE, SERUM 1.7 mg/dL (0.72-1.25); POTASSIUM 4.7 mmol/L (3.5-5.1)
[2020-04-23 19:24] LABS: CREATINE KINASE MB 2.7 ng/mL (0-5.0)
[2020-04-23] MEDS ORDERED: SODIUM CHLORIDE 0.9% 1000ML 1,000 ML IV ONE (19:45)
[2020-04-23 21:17] VITALS: BP 128/77
== END 2020-04-23 20:48 | disposition home or self-care (01) ==
LOC: ER 18:24
DX: E86.0 Dehydration (principal); R42 Dizziness and giddiness; I10 Essential (primary) hypertension; E11.9 Type 2 diabetes mellitus without complications; Z88.0 Allergy status to penicillin; Z88.7 Allergy status to serum and vaccine; Z91.041 Radiographic dye allergy status; Z79.82 Long term (current) use of aspirin; Z79.01 Long term (current) use of anticoagulants; Z79.84 Long term (current) use of oral hypoglycemic drugs
CPT/HCPCS: 36415; 70450; 80053; 81001; 82550; 82553; 84484; 85025; 93005; 99284; J7030

== ENCOUNTER → 2021-08-03 | Outpatient (CLI) | payer MEDICARE | LOC: RAD 15:02 | DX: J40 Bronchitis, not specified as acute or chronic (principal) | CPT/HCPCS: 71046 ==

== ENCOUNTER 2021-11-07 12:00 | Emergency (ER) | payer MEDICARE ==
[~2021-11-07] VITALS: Ht 170.2 cm; Wt 122.5 kg
[2021-11-07] MEDS ORDERED: BEBTELOVIMAB 175 MG INJ IV ONE (12:15)
== END 2021-11-07 12:54 | disposition home or self-care (01) ==
LOC: ER 12:22
DX: R05.9 Cough, unspecified (principal); U07.1 COVID-19; I10 Essential (primary) hypertension; E11.9 Type 2 diabetes mellitus without complications; D75.1 Secondary polycythemia
CPT/HCPCS: 99283